=== PATIENT | male | born 1980 ===

== ENCOUNTER 2018-07-26 23:20 | Emergency (ER) | payer MEDICAID ==
[2018-07-26 23:36] VITALS: BMI 41.1
[2018-07-26 23:40] VITALS: RESP 18; TEMP 98.4
--- NOTE | 2018-07-26 23:56 | ED PDOC ---
Arrival/HPI - General Historian: Patient - History of Present Illness Narrative History of Present Illness (Text): 07/26/18 23:53 37 y/o male, no significant pmh, nkda, c/o rt. sided nasal pain with redness x 2 days with no fall or trauma. Aching pain, aggravated by touching, no numbness or tingling, no eye pain, no change in vision, no rash, no night sweat, no change vision, no other medical or psychological complaints. <Sekou Gonzalez - Last Filed: 07/26/18 23:53> <Jose Alfredo Child - Last Filed: 07/27/18 05:39> - General Chief Complaint: ENT Problem Time Seen by Provider: 07/26/18 23:46 Past Medical History - Provider Review Nursing Documentation Reviewed: Yes - Psychiatric Hx Substance Use: No <Sekou Gonzalez - Last Filed: 07/26/18 23:53> Family/Social History - Physician Review Nursing Documentation Reviewed: Yes Family/Social History: Unknown Family HX Smoking Status: Never Smoked Hx Alcohol Use: Yes Frequency of alcohol use: Socially Hx Substance Use: No <Sekou Gonzalez - Last Filed: 07/26/18 23:53> Allergies/Home Meds <Sekou Gonzalez - Last Filed: 07/26/18 23:53> <Jose Alfredo Child - Last Filed: 07/27/18 05:39> Allergies/Adverse Reactions: Allergies No Known Allergies Allergy (Verified 07/26/18 23:35) Review of Systems - Review of Systems Constitutional: absent: Fatigue, Fevers Eyes: absent: Vision Changes ENT: absent: Hearing Changes Respiratory: absent: SOB, Cough Cardiovascular: absent: Chest Pain Gastrointestinal: absent: Abdominal Pain, Nausea, Vomiting Musculoskeletal: absent: Arthralgias, Back Pain Skin: Skin Lesions. absent: Rash, Pruritis, Laceration, Abscess, Ulcer, Cellulitis Psychiatric: absent: Anxiety, Depression, Suicidal Ideation <Sekou Gonzalez - Last Filed: 07/26/18 23:53> Physical Exam Vital Signs Reviewed: Yes Vital Signs Temp Pulse Resp BP Pulse Ox 07/26/18 23:36 98.4 F 98 H 18 140/90 97 Temperature: Afebrile Blood Pressure: Normal Pulse: Regular Respiratory Rate: Normal Appearance: Positive for: Well-Appearing, Non-Toxic, Comfortable Pain Distress: Mild Mental Status: Positive for: Alert and Oriented X 3 - Systems Exam Head: Present: Atraumatic, Normocephalic Pupils: Present: PERRL Extroacular Muscles: Present: EOMI Conjunctiva: Present: Normal Mouth: Present: Moist Mucous Membranes Nose (External): Present: Atraumatic, Lesions. No: Abrasion, Contusion, Laceration Nose (Internal): Present: Normal Inspection, No Active Bleeding. No: Clear Mucous, Rhinorrhea, Septal Deviation, Septal Hematoma, Epistaxis Neck: Present: Normal Range of Motion Respiratory/Chest: Present: Clear to Auscultation, Good Air Exchange. No: Respiratory Distress, Accessory Muscle Use Cardiovascular: Present: Regular Rate and Rhythm, Normal S1, S2. No: Murmurs Abdomen: No: Tenderness, Distention, Peritoneal Signs, Rebound, Guarding Back: Present: Normal Inspection Upper Extremity: Present: Normal Inspection. No: Cyanosis, Edema Lower Extremity: Present: Normal Inspection. No: Edema Neurological: Present: GCS=15, CN II-XII Intact, Speech Normal, Motor Func Grossly Intact, Gait Normal, Memory Normal Skin: Present: Warm, Dry, Rashes (Rt. lateral nasal region visible erythematous rash approx. 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 <Sekou Gonzalez - Last Filed: 07/26/18 23:53> - PA / HALL CLEANER / Resident Statement ASHWIN has reviewed & agrees with the documentation as recorded. <Sekou Gonzalez - Last Filed: 07/26/18 23:53> - PA / HALL CLEANER / Resident Statement ASHWIN has reviewed & agrees with the documentation as recorded. <Jose Alfredo Child - Last Filed: 07/27/18 05:39> Disposition/Present on Arrival - Present on Arrival Any Indicators Present on Arrival: No History of DVT/PE: No History of Uncontrolled Diabetes: No Urinary Catheter: No History of Decub. Ulcer: No History Surgical Site Infection Following: None - Disposition Have Diagnosis and Disposition been Completed?: Yes Disposition Time: 23:57 Patient Plan: Discharge <Sekou Gonzalez - Last Filed: 07/26/18 23:53> - Present on Arrival Any Indicators Present on Arrival: No - Disposition Have Diagnosis and Disposition been Completed?: Yes <Jose Alfredo Child - Last Filed: 07/27/18 05:39> - Disposition Diagnosis: Facial lesion Disposition: HOME/ ROUTINE Condition: GOOD Additional Instructions: -Discharge home with augmentin, topical clindamycin, take tylenol or motrin at home for pain, follow up with your own pmd and system software programmer within 2 days, return to the ER for any new or worsening signs or symptoms. Prescriptions: Amoxicillin/Clavulanate [Augmentin 875 MG-125 MG] 1 tab PO BID #14 tab RX: Clindamycin/Tretinoin [Clinda-Tretinoin 1.2%-0.025%] 1 appful TP QPM #5 gel..gram. Referrals: Brian Richmond MD [Staff Provider] - Follow up with primary Forms: [facility] ([place]), WORK NOTE
[2018-07-27 00:30] VITALS: BP 122/79; PULSE 78; O2SAT 99
== END 2018-07-27 00:29 | disposition home or self-care (01) ==
LOC: ED 23:20
DX: L98.9 Disorder of the skin and subcutaneous tissue, unspecified (principal)